=== PATIENT | female | born 1955 | race Caucasian/White ===

== ENCOUNTER → 2016-09-24 | Outpatient (CLI) | payer BC ==
[~2016-09-24] MED LIST: HYDR-3754 PO; ROSU20TA PO
--- NOTE | 2016-09-24 09:26 | Diagnostic Imaging Report ---
EXAM: ABDOMEN (FLAT PLATE) 1VIEW INDICATION: Hematuria. COMPARISON: None. FINDINGS: 9 mm osseous body overlying the right L5 transverse process may represent renal stone. Large amount of stool throughout much of the colon and rectum. Nonobstructive bowel gas pattern. Mild degenerative changes in the lower lumbar spine and both hips. IMPRESSION: 1. 9 mm osseous body overlying the right L5 transverse process may be within the right ureter. 2. Large amount of stool throughout much of the colon and rectum would be compatible with constipation. Nonobstructive bowel gas pattern. Dictated by: Dictated on workstation # [id number]
--- NOTE | 2016-09-24 10:42 | Diagnostic Imaging Report ---
INDICATION: Hematuria. TECHNIQUE: Bilateral renal sonography was performed in the routine fashion. FINDINGS: The right kidney measures 9.0 x 5.4 cm and the left is 10.3 x 5.1 cm. Both kidneys show normal cortical echogenicity and thickness with no hydronephrosis or mass. There are no sonographically evident calculi. The bladder was not imaged. IMPRESSION: Unremarkable bilateral renal sonography. Dictated by: Dictated on workstation # [id number]
== END ==
LOC: RAD 08:46
PROVIDERS: ATTEND Urology
DX: R31.29 Other microscopic hematuria (principal)
CPT/HCPCS: 74000; 76770; 88112

== ENCOUNTER → 2016-10-21 | Outpatient (CLI) | payer BC | LOC: RAD 10:45 | PROVIDERS: ATTEND Urology | DX: N20.1 Calculus of ureter (principal) | CPT/HCPCS: 74176 ==